=== PATIENT | male | born 1955 | race Hispanic/Latino ===

== ENCOUNTER 2021-02-14 13:18 | Observation (INO) | payer SELFPAY ==
[~2021-02-14] VITALS: Ht 165.1 cm; Wt 80.0 kg
[2021-02-14 14:14] LABS: HEMATOCRIT 41.2 % (39.0-50.0); HEMOGLOBIN 13.1 g/dl (14.0-18.0); IMMATURE GRANULOCYTES 0.6 % (0.0-5.0); MEAN CELL VOLUME 94.1 fL CALC (80.0-100.0); MEAN CORPUSCULAR HGB 29.9 pG CALC (26.0-32.0); MEAN CORPUSCULAR HGB CONC 31.8 g/dL CAL (32.0-36.0); NEUT# 13.61 thou/uL (1.82-7.42); RED BLOOD COUNT 4.38 mill/uL (4.70-6.10); RED CELL DISTRI WIDTH 11.9 % (11.5-15.5)
[2021-02-14 14:32] LABS: ALBUMIN 3.2 g/dL (3.2-5.0); ALKALINE PHOSPHATASE 183 u/l (38-126); ANION GAP 24 (6-22 (CALC)); BILIRUBIN, TOTAL 0.9 mg/dL (0.0-1.4); BUN 15 mg/dL (8-23); BUN/CREATININE RATIO 24 (12-20 (CALC)); CARBON DIOXIDE 20 mmol/l (22-30); CHLORIDE 99 mmol/l (95-108); CREATININE 0.6 mg/dL (0.7-1.3); GFR > 60 ML/MIN (>=60 (CALC)); GFR FOR AFR.AMER. > 60 ML/MIN (>=60 (CALC)); POTASSIUM 4.4 mmol/l (3.5-5.1); SGOT/AST 23 u/l (19-48); SODIUM 139 mmol/l (137-146); TOTAL PROTEIN 7.5 g/dL (6.3-8.2)
[2021-02-14 16:57] VITALS: BP 178/94
[2021-02-14 19:11] VITALS: BP 118/71
[2021-02-15 03:35] VITALS: BP 117/73
[2021-02-15 05:19] LABS: MEAN CELL VOLUME 95.1 fL CALC (80.0-100.0); MEAN CORPUSCULAR HGB 30.4 pG CALC (26.0-32.0); RED BLOOD COUNT 3.45 mill/uL (4.70-6.10)
[2021-02-15 05:20] LABS: HEMATOCRIT 32.8 % (39.0-50.0); HEMOGLOBIN 10.5 g/dl (14.0-18.0)
[2021-02-15 05:29] LABS: ANION GAP 11 (6-22 (CALC)); BUN 12 mg/dL (8-23); BUN/CREATININE RATIO 33 (12-20 (CALC)); CALCULATED LDLCHOLESTEROL 48 mg/dL (62-129 (CALC)); CARBON DIOXIDE 23 mmol/l (22-30); CHLORIDE 104 mmol/l (95-108); CREATININE 0.4 mg/dL (0.7-1.3); GFR > 60 ML/MIN (>=60 (CALC)); GFR FOR AFR.AMER. > 60 ML/MIN (>=60 (CALC)); HDL CHOLESTEROL 11 mg/dL (>=40); MAGNESIUM 1.9 mg/dL (1.6-2.3); SODIUM 134 mmol/l (137-146); TOTAL CHOLESTEROL 86 mg/dl (0-199); TOTAL TRIGLYCERIDES 136 mg/dl (30-149); VLDL CHOLESTROL 27 mg/dl (4-45 (CALC))
[2021-02-15 05:32] LABS: POTASSIUM 3.5 mmol/l (3.5-5.1)
[2021-02-15 08:12] VITALS: BP 137/80
== END 2021-02-15 14:04 | disposition short-term general hospital (02) | DRG 872 ==
LOC: ED 13:18 → ED-I 15:10 → ED 15:25 → MS2 15:26
PROVIDERS: Family Medicine; ADMIT Internal Medicine; ATTEND Internal Medicine
PROC: 3E02340 Introduction of Influenza Vaccine into Muscle, Percutaneous Approach (ICD-10-PCS; principal; 2021-02-15)
PROC: 3E0234Z Introduction of Serum, Toxoid and Vaccine into Muscle, Percutaneous Approach (ICD-10-PCS; 2021-02-15)
DX: A41.9 Sepsis, unspecified organism (principal); E11.52 Type 2 diabetes mellitus with diabetic peripheral angiopathy with gangrene; I96 Gangrene, not elsewhere classified; R93.6 Abnormal findings on diagnostic imaging of limbs; E11.65 Type 2 diabetes mellitus with hyperglycemia; I10 Essential (primary) hypertension; Z23 Encounter for immunization; Z20.822 Contact with and (suspected) exposure to COVID-19
CPT/HCPCS: G0378; Q9967

== ENCOUNTER 2021-02-20 20:00 | Observation (INO) | payer SELFPAY ==
[~2021-02-20] VITALS: Ht 175.3 cm; Wt 80.0 kg
--- NOTE | 2021-02-20 20:00 | NUR ---
TRANSFER FROM [facility], ARRIVED TO ROOM, DENIES PAIN OR NEEDS AT THIS TIME, X2 IV'S NOTED, PATENT 18G LAC, 20G R HAND, ON ROOM AIR, RESP ARE EVEN AND UNLABORED, RBKA WITH STABILIZER IN PLACE, DRESSING IS CLEAN DRY AND INTACT. NOTIFIED REGISTRATION THAT PATIENT IS HERE AND NEEDS TO BE REGISTERED AND PLACED ON TELEMETRY, VSS AT THIS TIME. STATES LAST BM WAS TWO DAYS AGO. ACTIVE BS, LUNGS ARE CLEAR ALLTHROUGHOUT. STATES LIVES AT HOME WITH SOME FRIENDS. DENIES TAKING INSULIN AT HOME, BUT STATES "I'M DIABETIC." WILL NOTIFY MD OF PATIENT ARRIVAL AND NEED FOR ORDERS. EXPLAINED CALL ROLLINS SYSTEM, VOICES UNDERSTANDING AND DEMOSTRATE HOW TO USE CALL ROLLINS. URINAL AT BEDSIDE, WILL FOLLOW UP CLOSELY.
[2021-02-20 22:02] VITALS: BP 154/95
--- NOTE | 2021-02-20 22:15 | NUR ---
MEAL TRADE PROVIDED.
--- NOTE | 2021-02-20 22:42 | NUR ---
PATIENT IS RESTING IN BED NO PAIN OR NEEDS REPORTED, ST 130 SUSTAINING PER ER TELE MONITOR, MD AWARE, NO NEW ORDERS RECEIVED. PATIENT IS WATCHING TV, ASYMPTOMATIC.
--- NOTE | 2021-02-20 23:38 | NUR ---
PATIENT AWAKE, WATCHING TV, ABX INFUSING PER MD ORDERS. NO S/S OF INFILTRATION. CALL ROLLINS AT REACH. NO PAIN REPORTED.
[2021-02-21 00:03] VITALS: BP 122/81
--- NOTE | 2021-02-21 01:15 | NUR ---
MEDICATED WITH TYLENOL FOR PAIN TO RBKA, RATES IT AT 6/10 ACHING, WILL FOLLOW UP WITH REASSESSMENT.
--- NOTE | 2021-02-21 02:24 | NUR ---
PATIENT C/O PAIN TO [facility] PAIN, TYLENOL ADMINISTERED AN HOUR AGO, DIDNT'T HELP, NOTIFIED MD. WAITING FOR NEW ORDERS.
--- NOTE | 2021-02-21 02:52 | NUR ---
MEDICATED WITH TORADOL IV FOR [place] PAIN, WILL FOLLOW UP WITH PAIN REASSESSMENT.
[2021-02-21 03:58] VITALS: BP 118/71
[2021-02-21 05:32] LABS: HEMOGLOBIN 10.1 g/dl (14.0-18.0); MEAN CELL VOLUME 93.8 fL CALC (80.0-100.0); MEAN CORPUSCULAR HGB 29.6 pG CALC (26.0-32.0); MEAN CORPUSCULAR HGB CONC 31.6 g/dL CAL (32.0-36.0); RED BLOOD COUNT 3.41 mill/uL (4.70-6.10); RED CELL DISTRI WIDTH 12.3 % (11.5-15.5)
[2021-02-21 05:48] LABS: ANION GAP 7 (6-22 (CALC)); BUN 7 mg/dL (8-23); BUN/CREATININE RATIO 17 (12-20 (CALC)); CHLORIDE 101 mmol/l (95-108); CREATININE 0.4 mg/dL (0.7-1.3); GFR > 60 ML/MIN (>=60 (CALC)); GFR FOR AFR.AMER. > 60 ML/MIN (>=60 (CALC)); MAGNESIUM 1.6 mg/dL (1.6-2.3); POTASSIUM 4.1 mmol/l (3.5-5.1); SODIUM 133 mmol/l (137-146)
[2021-02-21 05:52] LABS: CARBON DIOXIDE 29 mmol/l (22-30)
[2021-02-21 08:00] VITALS: BP 111/74
--- NOTE | 2021-02-21 08:00 | NUR ---
PT EATING BREAKFAST UPON ENTERING ROOM. STATES NO PAIN AT THIS TIME. PT HAD RIGHT LEG BELOW THE KNEE AMPUTATION. BRACE IN PLACE, DRESSING CDI. INSTRUCTIONS NOT TO REDRESS JUST REINFORCE DRESSING. ASSESSMENT AND VITALS ALLOWED AT THIS TIME. LUNG SOUNDS ARE CLEAR UPPER/LOWER ANTERIOR AND POSTERIOR. BREATHING EVEN AND UNLABORED. HEART SOUND ARE REGULAR. TELE MONITOR IN PLACE, CONTINOUS MONITORING BY ED. PULSE THIS MORNING 90. BOWEL SOUNDS ACTIVE X4. RADIAL PULSE WEAK BILATERALLY. PT HAS IV 18G LAC, FLUSHED WITH NO RESISTANCE. 20G RH, FLUSHED WITH NO RESISTANCE. BOTH IV SALINE LOCK. SCD IN PLACE ON THE LEFT LEG. LEFT PEDAL PULSE WEAK. FALL/ SAFTEY PRECAUTIONS IN PLACE. PT ACCUCHECK THIS MORNINING 253, COVERED PT WITH INSULIN PER SLIDING SCALE. STATES NO OTHER NEEDS AT THIS TIME. CALL LIGHT WITHIN REACH.
[2021-02-21 11:03] VITALS: BP 134/74
--- NOTE | 2021-02-21 12:15 | NUR ---
PT EATING LUNCH AT THIS TIME. STATES NO PAIN AT THIS TIME. RIGHT LEG REMAINS IN BRACE. DRESSING IS CDI. IV PATENT. TELE MONITOR IN PLACE. FALL/SAFTEY RECAUTIONS IN PLACE. CALL LIGHT WITHIN REACH.
[2021-02-21 16:06] VITALS: BP 136/78
--- NOTE | 2021-02-21 16:08 | NUR ---
PT AWAKE WATCHING TV AT THIS TIME. STATES NO PAIN AT THIS TIME. DRESSING BRACE IN PLACE. DRESSING IS CDI. TELE MONITOR IN PLACE. CONTINOUS MONITORING BY ED. FALL/ SAFETY PRECAUTIONS IN PLACE. STATES NO OTHER NEEDS AT THIS TIME. CALL LIGHT WITHIN REACH.
[2021-02-21 19:28] VITALS: BP 116/71
--- NOTE | 2021-02-21 19:34 | NUR ---
REPORT GIVEN BY DAY NURSE PATIENT RESTING IN BED, WATCHING TV, PATIENT BELARUSIAN SPEAKING ONLY DENEIS PAIN AT THIS TIME. CALL ABEL AT [facility].
--- NOTE | 2021-02-21 20:00 | NUR ---
PATIENT ALERT ORIENTED, PORTUGUESE SPEAKING ONLY, DENIES PAIN OR DISCOMFORTS, CLEAR LUNG SOUNDS, ACTIVE BOWEL SOUNDS, HOOKED ON TELEMETRY SR 91, PATIENT S/P RT BKA, DRESSING CDI WRAP WITH GROVER WRAP AND ON A IMMOBILIZER, ELEVATED, CALL LIGHT AT REACH.
[2021-02-22] VITALS: BP 115/70
--- NOTE | 2021-02-22 | NUR ---
PATIENT APPEARS TO BE SLEEPING WITH EYES CLOSED, CALL LIGHT AT REACH.
[2021-02-22 04:00] VITALS: BP 122/75
--- NOTE | 2021-02-22 04:52 | NUR ---
PATIENT IN BED, BREATHING UNLABORED, SCD IN PLACE, TECH IN ROOM FORF BLOOD DRAW, CALL LIGHT AT REACH.
[2021-02-22 05:44] LABS: HEMATOCRIT 30.7 % (39.0-50.0); HEMOGLOBIN 9.9 g/dl (14.0-18.0); MEAN CELL VOLUME 94.2 fL CALC (80.0-100.0); MEAN CORPUSCULAR HGB 30.4 pG CALC (26.0-32.0); MEAN CORPUSCULAR HGB CONC 32.2 g/dL CAL (32.0-36.0); RED BLOOD COUNT 3.26 mill/uL (4.70-6.10); RED CELL DISTRI WIDTH 12.3 % (11.5-15.5)
[2021-02-22 05:48] LABS: ANION GAP 8 (6-22 (CALC)); BUN 8 mg/dL (8-23); BUN/CREATININE RATIO 21 (12-20 (CALC)); CARBON DIOXIDE 29 mmol/l (22-30); CHLORIDE 105 mmol/l (95-108); CREATININE 0.4 mg/dL (0.7-1.3); GFR > 60 ML/MIN (>=60 (CALC)); GFR FOR AFR.AMER. > 60 ML/MIN (>=60 (CALC)); POTASSIUM 3.6 mmol/l (3.5-5.1); SODIUM 138 mmol/l (137-146)
[2021-02-22 08:49] VITALS: BP 110/69
--- NOTE | 2021-02-22 08:49 | NUR ---
PT SITTING IN BED WATCHING TV. A &O X3. NOT DISTRESS NOTED. PT PRIMARY ZAMBIAN SPEAKING. CLEAR BREATH SOUNDS UPON AUSCULTATION. ACTIVE BOWEL SOUNDS X4 QUADRANTS. PT POST OP RT LARS FROM [facility]. DRESSING IN PLACE, CDI WITH IMMOBILIZER IN PLACE. NO NEW ORDERS FOR DRESSING CHANGE AT THIS TIME. X2 IV SITES, PATENT WITH PT REPORTING MINIMAL DISCOMFORT WITH FLUSHING. IV SITES TO BE CHANGE PER PROTOCOL. STUD MASTER/MISTRESS IN PLACE. CURRENTLY SR 81. ASSESSMENT COMPLETED. DISCUSS POC. CALL LIGHT WITHIN REACH.
--- NOTE | 2021-02-22 09:52 | NUR ---
PHYSICAL THERAPY AT BEDSIDE FOR CONSULT
[2021-02-22 11:19] VITALS: BP 117/79
--- NOTE | 2021-02-22 12:07 | NUR ---
PT SITTING UP ON CHAIR. NO DISTRESS NOTED. PT C/O PAIN 08/22, D MONICA STALLWORTH NOTIFIED. CALL LIGHT WITHIN REACH.
--- NOTE | 2021-02-22 14:28 | NUR ---
S- pt reported 6/10 pain, and rec'ing pain meds recently. He stated he had not been OOB in chair since before going to [facility]. Translation per PT aid Dragan 0- Pt seen as bedside, he was supine with R knee flexed on a pillow and no alfonso in place. Pt performed active knee flexion/extension on R x 10-15 reps, pt with 10 degree extension lag to approx 95 degrees of flexion. Stumped wraped. Rolling side to side with bedrails was modified indep. Pt moved to sitting with bed rail use and mod assist x 1. He was able to scoot with much encouragement and min assist. Pt with slight light headedness with sitting initially but resolved. Sitting balance fair. Pt IV placement in dorsum of hand which made pushing difficult on R. Transfer to w/c with max assist. Pt unable to extend L Knee completely. W/C mobility was practiced using BUE and LLE. Pt instructed in brake use and was able to lock and unlock brakes (he has not use a w/c before). Pt stood x 1 with max assist x2, posture was very flexed at hip and L knee, stood approx 30 sec with max encouragement/assist to maintain. Transfer to recliner with max assist. Pt instructed to tranfer towards L. Quad set performed x 10 bilaterally with weak contraction on R, Resisted hip ext/knee performed x 10 reps on L. Pt instructed in importance of no keeping R knee in flexion or extension for prolong time to prevent knee contracture. Pt left in recliner legs elevated and pillow under R leg with knee in extension. BP 124/72 HR 83, 02 sats 98%. A- Pt with general weakness and decreased mobility skills. [facility] 10 P- Will follow per POC.
--- NOTE | 2021-02-22 14:49 | NUR ---
Addedum time spent with pt 50 min
[2021-02-22 15:11] VITALS: BP 110/60
--- NOTE | 2021-02-22 19:20 | NUR ---
NEW IV STARTED TO LT HAND, #20G X1 ATTEMPT BY THIS SCHOOL BUSINESS ADMINISTRATOR. HEATLHY AND PATENT, WITH GOOD BLOOD RETURN. X2 IV'S REMOVED BOTH INTACT UPON REMOVAL. PT TOLERATED WELL. CALL LIGHT WITHIN REACH.
--- NOTE | 2021-02-22 19:40 | NUR ---
REPORT FROM ARIANA DE LOS SANTOS. ASSUMED PT CARE.
[2021-02-22 19:45] VITALS: BP 119/77
--- NOTE | 2021-02-22 21:17 | NUR ---
PT MEDICATED ORDERED. NO APPARENT DISTRESS NOTED. PT DENIES ANY PAIN OR DISCOMFORT. FRESH ICE WATER PROVIDED UPON REQUEST. FINISHING PAN OPERATOR IN PLACE. RIGHT BKA, WITH MIGUE IN PLACE PARKER, KIM. VSS. CALL LIGHT WITHIN REACH. WILL CONTINUE TO MONITOR.
--- NOTE | 2021-02-23 00:07 | NUR ---
PT RESTING IN BED WITH EYES CLOSED. NO APPARENT DISTRESS NOTED. RESPIRATIONS EVEN AND UNLABORED. CALL LIGHT WITHIN REACH. WILL CONTINUE TO MONITOR.
[2021-02-23 00:24] VITALS: BP 109/71
[2021-02-23 04:10] VITALS: BP 110/67
--- NOTE | 2021-02-23 04:10 | NUR ---
PT RESTING IN BED WITH EYES CLOSED. NO APPARENT DISTRESS NOTED. PT WAKES EASILY. DENIES ANY PAIN OR DISCOMFORT. VSS. CALL LIGHT WITHIN REACH. WILL CONTINUE TO MONITOR.
[2021-02-23 05:52] LABS: HEMATOCRIT 29.9 % (39.0-50.0); HEMOGLOBIN 9.4 g/dl (14.0-18.0); MEAN CELL VOLUME 94.3 fL CALC (80.0-100.0); MEAN CORPUSCULAR HGB 29.7 pG CALC (26.0-32.0); MEAN CORPUSCULAR HGB CONC 31.4 g/dL CAL (32.0-36.0); RED BLOOD COUNT 3.17 mill/uL (4.70-6.10); RED CELL DISTRI WIDTH 12.2 % (11.5-15.5)
[2021-02-23 06:05] LABS: ANION GAP 9 (6-22 (CALC)); BUN 8 mg/dL (8-23); BUN/CREATININE RATIO 19 (12-20 (CALC)); CARBON DIOXIDE 28 mmol/l (22-30); CHLORIDE 101 mmol/l (95-108); CREATININE 0.4 mg/dL (0.7-1.3); GFR > 60 ML/MIN (>=60 (CALC)); GFR FOR AFR.AMER. > 60 ML/MIN (>=60 (CALC)); SODIUM 134 mmol/l (137-146)
[2021-02-23 07:30] VITALS: BP 116/73
--- NOTE | 2021-02-23 08:25 | NUR ---
PT IN BED WATCHING TV. NO DISTRESS NOTED AT THIS TIME. PATIENT DENIES ANY PAIN. RESPIRATIONS CLEAR AND UNLABORED. HEART SOUNDS NORMAL UPON AUSCULTATION. BOWEL SOUNDS ACTIVE X4 QUADRANTS. RIGHT BKA IS CLEAN AND DRY WITH NO DRAINAGE AND ELEVATED.
--- NOTE | 2021-02-23 10:02 | NUR ---
DR OJEDA AND Judith ANDERSON APRN AT BEDSIDE DISCUSSING POC
--- NOTE | 2021-02-23 10:30 | NUR ---
PT REQUESTED PAIN MEDICATION AFTER WORKING WITH PT. NO DISTRESS NOTED AT THIS TIME. RIGHT BKA IS CLEAN, HEALTHY WITH NO DRAINAGE.
[2021-02-23 11:00] VITALS: BP 124/67
--- NOTE | 2021-02-23 12:14 | NUR ---
S- Pt without complaints. 0- Pt resting in bed. He was able to roll side to side withou use of bed rail with verbal cueing. Scoot up in bed without rails with much effort and he was able to advance upward some. Supine to sit without use of bed rail with SBA and verbal cues. Sit pivot to w/c, armrest removed with instructions and guarding. Pt was able to wheel self in room and performed transfers 2 more times. AROM ex performed to R hip and knee. manual resist to L hip ext and knee extension, bridging x 10 reps. Pt stood x 1 with RW for 30 sec with improved posture today. Pt was left sitting in w/c with RLE elevated, call mg/tray in reach, nursing aware. A- pt with increase ability to use w/c and transfer (sit pivot vs stand pivot) P- Will follow per POC.
[2021-02-23 14:45] VITALS: BP 116/69
--- NOTE | 2021-02-23 15:30 | NUR ---
S- No complaints voiced other than fatique. 0- Pt seen this pm, again with PT tech Dragan for translations. Pt moved supine to sit with SBA using bed rail. He was able to position w/c correctly and lock bracks, assist to remove armrest of chair required due to older chair. Transferred to w/c with CGA/min assist. Rolling chair in room was indep. Attempted transfer to toilet but pt too weak to perform this pm. Min assist with sit pivot back to bed. Pt resting in bed with call mg/bedside table in reach. Time spent with pt 30 min. 0- [facility] 10 ECF P- Will follow.
--- NOTE | 2021-02-23 18:32 | NUR ---
PT RESTING COMFORTABLE. NO DISTRESS NOTED AT THIS TIME.
--- NOTE | 2021-02-23 19:12 | NUR ---
REPORT RECEIVED FROM DAYSHIFT NURSE VIA SBAR FORMAT. PATIENT IS RESTING IN BED, NO PAIN OR NEEDS REPORTED AT THIS TIME, RBKA NOTED WITH DRESSING IN PLACE, CDI. SCD'S TO LEFT LEG. URINAL AT BEDSIDE, NO TELEMETRY, IV PATENT, SALINE LOCK. ON ROOM AIR, RESP ARE EVEN AND UNLABORED. CALL ROLLINS AT REACH, WILL FOLLOW UP WITH PM MEDS AND ROUNDINGS.
[2021-02-23 19:36] VITALS: BP 109/70
--- NOTE | 2021-02-23 21:49 | NUR ---
FINGERSTICK ACCU CHEK 244, COVERED WITH INSULIN SHORT AND LONG ACTING PER ERMAR ORDERS, SNACK PROVIDED, PATIENT DENIES ANY OTHER NEEDS, EDUCATED ABOUT DIABETIC DIET AND HOW TO INJECT HIMSELF, PATIENT NEEDS REINFORMENT. CALL ROLLINS AT [facility], WILL FOLLOW UP WITH FREQUENTLY ROUNDINGS.
--- NOTE | 2021-02-24 01:00 | NUR ---
PATIENT IS RESTING IN BED, NO PAIN OR NEEDS REPORTED, CALL ROLLINS AT REACH, WILL FOLLOW UP CLOSELY.
[2021-02-24 04:01] VITALS: BP 116/75
--- NOTE | 2021-02-24 05:00 | NUR ---
RESTING IN BED WITH EYES CLOSED, NO PAIN OR NEEDS REPORTED, CALL ROLLINS AT REACH.
[2021-02-24 08:14] VITALS: BP 132/80
--- NOTE | 2021-02-24 08:14 | NUR ---
PT IS RESTING IN BED WATCHING TV. NO DISTRES NOTED. PT DENIES HAVING PAIN AT THIS TIME. CLEAR LUNGS AND UNLABORED RESPIRATIONS. S1 AND S2 NORMAL UPON AUSCULTATION. ACTIVE BOWEL SOUNDS X4 QUADRANTS. RIGHT STUMP ON PILLOW. CALL BED WITHIN REACH.
--- NOTE | 2021-02-24 11:34 | NUR ---
S- Pt reported a little pain. 0- Pt resting in bed, supine R stump on pillow with approx 10-20 degress of flexion. Supine ex performed to RLE including hip/knee flexion, hip abd in sidelying and supine, hip extension in sidelying, SAQ/LAQ 10-15 reps. RLE with manual resist for heelslides, sidelying hip extension and abd, clam shells 10-15 reps each. Pt required mod assist for sidelying position ex due to poor technique/tight hip flexors. Rolling in bed without rails performed with superivison and max effort. Supine to sit without bed rail required min assist. assist. Sitting balance was F+ on edge of bed and he was able to maintain balance to reposition chair for transfers. Sitting pivot transfer x 3 reps with verbal cue and SBA. He was able to self propel w/c shor distance in silver way approx 50'. Pt left in w/c RLE elevated and supported, call mg in reach/tray in reach. BP 120/73, HR 83, 02 sats 97% Time spent with pt 55 min. A- Pt mobility improving. [facility] 11 ECF. P- Will follow per POC
--- NOTE | 2021-02-24 14:17 | NUR ---
Pt resting in bed, new w/c for pt in room. He refused treatment stating he was too tried.
--- NOTE | 2021-02-24 14:30 | NUR ---
PT RESTING IN BED. PT REQUESTED FRESH WATER. AT THIS TIME PATIENT WAS DISCUSSING DISCHARGE PLANNING WITH CASE MANAGEMENT. NO PAIN OR DISTRESS NOTED AT THIS TIEM. CALL LIGHT WITHIN REACH.
--- NOTE | 2021-02-24 14:46 | NUR ---
D MONICA STALLWORTH NOTIFIED OF NO IV ACCESS; OKAY WITHOUT IV. ORDER WRITTEN.
[2021-02-24 15:57] VITALS: BP 128/81
[2021-02-24 19:00] VITALS: BP 117/71
--- NOTE | 2021-02-24 19:00 | NUR ---
REPORT RECEIVED FROM Alexis PA RN
--- NOTE | 2021-02-24 19:10 | NUR ---
PT IS COMFORTABLY RESTING IN BED. DENIES ANY PAIN AT THE MOMENT. NO DISTRESS NOTED. PT STATES HE IS READY TO GO HOME TOMORROW. PT RECEIVED EDUCATION ON HOW TO USE A GLUCOMETER AT HOME. CALL LIGHT WITHIN REACH.
--- NOTE | 2021-02-24 21:45 | NUR ---
ASSEMENT COMPELTED A THIS TIME, MEDICATIOSN ADMINSITERED PER EMAR.
[2021-02-25 04:00] VITALS: BP 125/80
--- NOTE | 2021-02-25 05:08 | NUR ---
PATIENT AWAKE WATCHING TV, DENIES ANY CURRENT NEEDS, CALL LIGHT AND BEDSIDE TABLE WITHIN REACH.
--- NOTE | 2021-02-25 07:30 | NUR ---
RECIEVED REPORT FROM MAGALI VARGAS
[2021-02-25 08:24] VITALS: BP 108/66
--- NOTE | 2021-02-25 08:24 | NUR ---
PT RESTING IN SEMI FOWLERS POSITION. PT IS A/OX3 AND LAO SPEAKING ONLY.[facility] STAFF AT BEDSIDE TO ASSIST WITH TRANSLATION. ASSESSMENT AND VITALS COMPLETED. BP 108/66, HR 88, O2 98% ON ROOM AIR. RESPIRATIONS ARE EVEN AND UNLABORED. LUNG SOUNDS CLEAR. HEART RHYTHM NORMAL. BOWEL SOUNDS ARE CLEAR. NO IV SITE. R BKA NOTED, GROVER WRAP IN PLACE, REMAINS CDI ELEVATED ON PILLOW X1. PT DENIES OF ANY PAINS OF DISCOMFORTS AT THIS TIME. ALL SAFTEY PRECAUTIONS ARE IN PLACE WITH CALL LIGHT IN REACH. WILL CONTINUE TO MONITOR.
--- NOTE | 2021-02-25 09:13 | NUR ---
DR OJEDA AND TAZ,ANRP AT [facility]
--- NOTE | 2021-02-25 09:15 | NUR ---
DR OJEDA AND TAZ,ANRP AT BEDSIDE
--- NOTE | 2021-02-25 09:16 | NUR ---
Patient would benefit from OT consult if medical agrees
--- NOTE | 2021-02-25 10:00 | NUR ---
PHYSICAL THERAPY AT BEDSIDE.
--- NOTE | 2021-02-25 10:15 | NUR ---
DR OJEDA AND FARZAD,ANRP AT BEDSIDE
--- NOTE | 2021-02-25 11:15 | NUR ---
S- pt requested using toilet. 0- Pt resting in bed. LE exercises performed including on R including hip and knee flexion, SAQ, quadsets. Bridging done bilaterally,,resisted heel slides on L and hip abd. Ex 2 x 10 reps. Pt stump was cleaned and new alfonso applied. Pt rolled side to side use of bed rails. Pt moved supine to sit with min assist. Sitting on edge of bed with supervision. Pt transferred to w/c with verbal cues (new chair) for instructions with removing arm rest and brake placement. Pt was able to propel chair with min to no vebal cues. Transfer to toilet with wall rail and armrest use and min to CGA of 1. Pt had large BM, nursing notified. pt was left in chair with stump supported in extension, call haritha and KRYSTAL estrada in reach. 0- [facility] 11 ECF P- will follow
[2021-02-25] MEDS ORDERED: METFORMIN HCL1000 MG PO (11:37)
[2021-02-25] MEDS ORDERED: HYDROCO/APAP1 TA9 PO (11:37)
[2021-02-25] MEDS ORDERED: GLIPIZIDE ER10 M1 PO (11:37)
--- NOTE | 2021-02-25 13:33 | NUR ---
PT EDUCATED ON DC INSTRUCTIONS AND NEW MEDCAITIONS. Des MARCIAL. PT EDUCATED ON USE OF GLUCOSE MACHINE. PT ABLE TO DEMONSTRATE BACK. NO IV ACCESS.
--- NOTE | 2021-02-25 13:41 | NUR ---
[facility]I CONTACTED. REQUEST FOR JOHN CAB TO BE CALLED. JOHN TAXI CALLED, CALL BACK TO BE RECIEVED WHEN AVAIABLE SPOT. [facility] TO PAY. ATTEMPTED TO CALL YOSI BACK. ANSWER. PT INFORMED. MAGALI MARCIAL TRANSLATED. PT ASSISTED BACK INTO BED.ALL SAFTEY PRECAUTIONS IN PLACE. WILL CONTINUE TO MONITOR
--- NOTE | 2021-02-25 13:54 | NUR ---
Discharge instructions given. Patient verbalizes understanding of same. Discharged in stable condition via Wheelchair to Home with staff. All belongings sent with pt. PT DC HOME VIA [employer] PAID FOR [facility]. ALL PERSONAL BELONGING AND DC INSTRUCTION WITH PT.
== END 2021-02-25 13:55 | disposition home or self-care (01) | DRG 301 ==
LOC: MS2 20:00
PROVIDERS: Nurse Practitioner; ADMIT Hospitalist; ATTEND Hospitalist
DX: E11.51 Type 2 diabetes mellitus with diabetic peripheral angiopathy without gangrene (principal); E11.65 Type 2 diabetes mellitus with hyperglycemia; I10 Essential (primary) hypertension; F17.200 Nicotine dependence, unspecified, uncomplicated; Z91.19 Patient's noncompliance with other medical treatment and regimen; Z79.84 Long term (current) use of oral hypoglycemic drugs; Z89.511 Acquired absence of right leg below knee
CPT/HCPCS: G0378; G0379; J0692; J1650